=== PATIENT | male | born 1980 | race Caucasian/White ===

== ENCOUNTER 2016-10-08 06:55 | Emergency (ER) | payer BC ==
--- NOTE | 2016-10-08 09:56 | DIAGNOSTIC IMAGING REPORT ---
PROCEDURE: XR CHEST 1 VIEW INDICATION: CHEST PAIN TECHNIQUE: Single view chest. 09:13 hours COMPARISON: None FINDINGS: The heart is at the upper limits of normal in size. Normal aortic contour. No central venous congestion. Clear lungs. No effusion or pneumothorax. Intact osseous structures. IMPRESSION: 1. Upper limits of normal heart size. 2. No acute process.
--- NOTE | 2016-10-08 14:46 | DIAGNOSTIC IMAGING REPORT ---
PROCEDURE: XR LUMBAR SPINAL PUNCTURE INDICATION: Headache. TECHNIQUE: Informed consent was obtained and the patient was advised of the usual risk and complications including infection, bleeding, and allergy. COMPARISON: None. FINDINGS: Prone position. Following sterile preparation and 1% lidocaine local anesthetic, fluoroscopic guidance (2.9 minutes, 1671.47 mGy) was utilized to place a 20-gauge spinal needle into the right posterior spinal canal at the L2-3 level (after some difficulty). 12 ml of clear CSF was aspirated (four separate tubes). Fluid samples and the patient were transferred back to the emergency department in satisfactory condition. The patient was instructed to remain semi prone for 4-6 hours and to resume routine activity in 2 days. IMPRESSION: 1. Successful diagnostic fluoroscopically guided lumbar puncture. 2. Findings discussed with Dr. Axel Still.
--- NOTE | 2016-10-08 15:37 | ED ORDER SUMMARY ---
..... Patient: DIANE CH OrderSheet [facility] VisitID: [id number] [place] [address] 36y, M Registration Date/Time: 10/08/2016 ORDER SHEET Weight: 115.6 kg (stated) Allergies: None GENERAL ORDERS: UA-Culture if indicated Urgent (07:10/08/2016 JBoardley R.N. per protocol) (Ack 7:17 KHoerner) (7:19 JBoardley R.N.) Urine Drug Screen Urgent (07:10/08/2016 JBoardley R.N. per protocol) (Ack 7:17 KHoerner) (7:19 JBoardley R.N.) Tenter Feeder (Continuous) (07:10/08/2016 JBoardley R.N. per protocol) (7:17 JBoardley R.N.) EKG - ER Stat (07:10/08/2016 JBoardley R.N. per protocol) (7:17 JBoardley R.N.) CBC w Diff Urgent (08:11 10/08/2016 Jewel Joshua) (Ack 8:11 CHERIoerner) (9:10 ALawrence ER Tech1) CMP Urgent (08:11 10/08/2016 Jewel Joshua) (Ack 8:11 CHERIoekadyner) (9:10 ALawrence ER Tech1) Chest 1V Urgent (09:03 10/08/2016 Jewel Joshua) (Ack 9:06 CHERIoerner) (9:10 ALawrence ER Tech1) CPK Urgent (09:10/08/2016 Bobby CABRERA) (Ack 9:27 CHERIoerner) (9:45 KHoerner) Troponin-I Urgent (09:10/08/2016 Bobby CABRERA) (Ack 9:27 CHERIoealex) (9:45 KHoerner) BNP Urgent (09:10/08/2016 Bobby CABRERA) (Ack 9:27 CHERIoerner) (9:45 KHoerner) Lactate, Serum Urgent (09:10/08/2016 Bobby CABRERA) (Ack 9:27 KHoerner) (9:45 KHoerner) Blood Culture (No) (N/A) Urgent (09:23 10/08/2016 Bobby CABRERA) (Ack 9:27 KHoerner) (9:45 KHoerner) EKG - ER Stat (09:58 10/08/2016 Bobby CABRERA) (10:04 ALawrence ER Tech1) CSF, Cell Count Urgent (12:20 10/08/2016 Bobby CABRERA) (Ack 12:24 KHoerner) (14:20 KHoerner) CSF, Culture Urgent (12:20 10/08/2016 Bobby CABRERA) (Ack 12:24 KHoerner) (14:20 KHoerner) CSF, Glucose Urgent (12:20 10/08/2016 Bobby CABRERA) (Ack 12:24 KHoerner) (14:20 KHoerner) CSF, Protein Urgent (12:20 10/08/2016 Bobby CABRERA) (Ack 12:24 KHoerner) (14:20 KHoerner) - (fluoroscopy guided lumbar puncture) (13:19 10/08/2016 Bobby CABRERA) (13:24 KHoerner) MEDICATION ORDERS: Ibuprofen PO 800 mg (NOW) (09:49 10/08/2016 SStone R.N. verbal order read back to Bobby CABRERA) (9:51 SStone R.N.) IV FLUIDS: Adenosine IV 6 mg (HIGH ALERT MEDICATION, NOW) (07:52 10/08/2016 SStone R.N. verbal order read back to Jewel Joshua) (7:55 SStone R.N.) Adenosine IV 12 mg (HIGH ALERT MEDICATION, NOW) (07:53 10/08/2016 SStone R.N. verbal order read back to Jewel Joshua) (7:55 SStone R.N.) Lopressor IV 5 mg (NOW) (07:53 10/08/2016 SStone R.N. verbal order read back to Jewel Joshua) (7:56 SStone R.N.) IV NS with Normal Saline 1 Liter: initial bolus 1000 mL (1000 mL/hr), then 1000 mL/hr for X1 (NOW) (07:54 10/08/2016 SStone R.N. verbal order read back to Jewel Joshua) (7:56 SStone R.N.) IV Saline Lock (07:54 10/08/2016 SStone R.N. verbal order read back to Jewel Joshua) (Ack 7:54 SStone R.N.) Lopressor IV 5 mg (HIGH ALERT MEDICATION, NOW) (08:08 10/08/2016 Jewel Joshua) (8:22 SStone R.N.) IV NS : initial bolus none -, then 1000 mL/hr for X1 (NOW) (08:09 10/08/2016 Jewel Joshua) (8:24 SStone R.N.) Reglan IV 10 mg (NOW) (08:14 10/08/2016 Jewel Joshua) (8:23 SStone R.N.) IV NS with Normal Saline 1 Liter: initial bolus none -, then 125 mL/hr for X1 (NOW) (09:50 10/08/2016 SStone R.N. verbal order read back to Bobby CABRERA) (9:51 SStone R.N.) Zofran IV 4 mg (NOW) (12:18 10/08/2016 Yuliana verbal order read back to Jewel Joshua) (12:26 SStone R.N.) Ativan IV 0.5 mg (HIGH ALERT MEDICATION, NOW) (13:24 10/08/2016 Bobby CABREAR) (Ack 13:30 KPage-Kuchan R.N.) (13:40 KPavishalKuchan R.N.) ORDER SHEET NOTES: [Electronically signed by Taylor Leonard R.N. (15:57 10/08/2016)] [Electronically signed by Axel Still MD (22:44 10/09/2016)] [Electronically locked/signed by Taylor Leonard R.N. (15:57 10/08/2016)]
--- NOTE | 2016-10-08 15:37 | ED ORDER SUMMARY ---
..... Patient: DIANE CH OrderSheet [facility] VisitID: [id number] [place] [address] 36y, M Registration Date/Time: 10/08/2016 ORDER SHEET Weight: 115.6 kg (stated) Allergies: None GENERAL ORDERS: UA-Culture if indicated Urgent (07:10/08/2016 JBoardley R.N. per protocol) (Ack 7:17 KHoerner) (7:19 JBoardley R.N.) Urine Drug Screen Urgent (07:10/08/2016 JBoardley R.N. per protocol) (Ack 7:17 KHoerner) (7:19 JBoardley R.N.) Medical Collections Representative (Continuous) (07:10/08/2016 JBoardley R.N. per protocol) (7:17 JBoardley R.N.) EKG - ER Stat (07:10/08/2016 JBoardley R.N. per protocol) (7:17 JBoardley R.N.) CBC w Diff Urgent (08:11 10/08/2016 Jewel Joshua) (Ack 8:11 CHERIoerner) (9:10 ALawrence ER Tech1) CMP Urgent (08:11 10/08/2016 Jewel Joshua) (Ack 8:11 CHERIoekadyner) (9:10 ALawrence ER Tech1) Chest 1V Urgent (09:03 10/08/2016 Jewel Joshua) (Ack 9:06 CHERIoerner) (9:10 ALawrence ER Tech1) CPK Urgent (09:10/08/2016 Bobby CABRERA) (Ack 9:27 CHERIoerner) (9:45 KHoerner) Troponin-I Urgent (09:10/08/2016 Bobby CABRERA) (Ack 9:27 CHERIoealex) (9:45 KHoerner) BNP Urgent (09:10/08/2016 Bobby CABRERA) (Ack 9:27 CHERIoerner) (9:45 KHoerner) Lactate, Serum Urgent (09:10/08/2016 Bobby CABRERA) (Ack 9:27 KHoerner) (9:45 KHoerner) Blood Culture (No) (N/A) Urgent (09:23 10/08/2016 Bobby CABRERA) (Ack 9:27 KHoerner) (9:45 KHoerner) EKG - ER Stat (09:58 10/08/2016 Bobby CABRERA) (10:04 ALawrence ER Tech1) CSF, Cell Count Urgent (12:20 10/08/2016 Bobby CABRERA) (Ack 12:24 KHoerner) (14:20 KHoerner) CSF, Culture Urgent (12:20 10/08/2016 Bobby CABRERA) (Ack 12:24 KHoerner) (14:20 KHoerner) CSF, Glucose Urgent (12:20 10/08/2016 Bobby CABRERA) (Ack 12:24 KHoerner) (14:20 KHoerner) CSF, Protein Urgent (12:20 10/08/2016 Bobby CABRERA) (Ack 12:24 KHoerner) (14:20 KHoerner) - (fluoroscopy guided lumbar puncture) (13:19 10/08/2016 Bobby CABRERA) (13:24 KHoerner) MEDICATION ORDERS: Ibuprofen PO 800 mg (NOW) (09:49 10/08/2016 SStone R.N. verbal order read back to Bobby CABRERA) (9:51 SStone R.N.) IV FLUIDS: Adenosine IV 6 mg (HIGH ALERT MEDICATION, NOW) (07:52 10/08/2016 SStone R.N. verbal order read back to Jewel Joshua) (7:55 SStone R.N.) Adenosine IV 12 mg (HIGH ALERT MEDICATION, NOW) (07:53 10/08/2016 SStone R.N. verbal order read back to Jewel Joshua) (7:55 SStone R.N.) Lopressor IV 5 mg (NOW) (07:53 10/08/2016 SStone R.N. verbal order read back to Jewel Joshua) (7:56 SStone R.N.) IV NS with Normal Saline 1 Liter: initial bolus 1000 mL (1000 mL/hr), then 1000 mL/hr for X1 (NOW) (07:54 10/08/2016 SStone R.N. verbal order read back to Jewel Joshua) (7:56 SStone R.N.) IV Saline Lock (07:54 10/08/2016 SStone R.N. verbal order read back to Jewel Joshua) (Ack 7:54 SStone R.N.) Lopressor IV 5 mg (HIGH ALERT MEDICATION, NOW) (08:08 10/08/2016 Jewel Joshua) (8:22 SStone R.N.) IV NS : initial bolus none -, then 1000 mL/hr for X1 (NOW) (08:09 10/08/2016 Jewel Joshua) (8:24 SStone R.N.) Reglan IV 10 mg (NOW) (08:14 10/08/2016 Jewel Joshua) (8:23 SStone R.N.) IV NS with Normal Saline 1 Liter: initial bolus none -, then 125 mL/hr for X1 (NOW) (09:50 10/08/2016 SStone R.N. verbal order read back to Bobby CABRERA) (9:51 SStone R.N.) Zofran IV 4 mg (NOW) (12:18 10/08/2016 Yuliana verbal order read back to Jewel Joshua) (12:26 SStone R.N.) Ativan IV 0.5 mg (HIGH ALERT MEDICATION, NOW) (13:24 10/08/2016 Bobby CABRERA) (Ack 13:30 KPage-Kuchan R.N.) (13:40 KPavishalKuchan R.N.) ORDER SHEET NOTES: [Electronically signed by Taylor Leonard R.N. (15:57 10/08/2016)] [Electronically signed by Axel Still MD (22:44 10/09/2016)] [Electronically locked/signed by Taylor Leonard R.N. (15:57 10/08/2016)]
--- NOTE | 2016-10-08 15:37 | ED CLINICAL REPORT ---
Clinical Report - Physicians/Mid Levels [facility] [address] [place] [address] 10/08/2016 7:00 Patient: DIANE CH Time Seen: 07:09; initial patient contact. Arrived- By ambulance. Historian- patient and EMS personnel. HISTORY OF PRESENT ILLNESS Chief Complaint: HEADACHE. This started today. It was abrupt in onset. Onset during light activity. It is described as similar to previous headaches. Located in the region of the right eye and left eye and frontal region. No neck pain. At its maximum, severity described as 8 / 10. When seen in the E.D., severity described as 3 / 10. No preceding symptoms, blurred vision, photophobia, associated nausea or numbness. No weakness or vomiting. (initially he felt that he had a caffeine withdrawal headache so he drank 2 energy drinks. Then he started feeling worse. He became flushed and had a "pinching" pain in his L armpit). No recent travel. REVIEW OF SYSTEMS The patient has had chills and experienced sweats. All systems otherwise negative, except as recorded above. PAST HISTORY Problems: no known problems. Additional Surgeries: no known surgeries. Medications: None. Allergies: None. SOCIAL HISTORY Smoker- current status unknown (he uses an e cigarette). History of occasional drug use: marijuana. No alcohol use. FAMILY HISTORY Cancer in first-degree relative (mother) and grandparent. ADDITIONAL NOTES The nursing notes have been reviewed. PHYSICAL EXAM Vital Signs: 10/08/2016 07:12 BP: 141/74. HR: 156. RR: 22. O2 saturation: 100%. Temp: 99.1 F. Pain level now: 7/10. Have been reviewed. Appearance: Alert. He is moderately obese. Eyes: Pupils equal, round and reactive to light. Eyes normal inspection. ENT: Pharynx normal. Neck: Normal inspection. Neck supple. No carotid bruit. CVS: Tachycardia. Respiratory: No respiratory distress. Breath sounds normal. Abdomen: Soft and nontender. No organomegaly. Obese. Back: Normal inspection. Skin: Diaphoresis. Extremities: Extremities exhibit normal ROM. No calf tenderness. No lower extremity edema. Neuro: Alert. Mood/affect normal. Speech normal. Cranial nerves normal (as tested). No cerebellar findings. No motor deficit. No sensory deficit. LABS, X-RAYS, AND EKG EKG: Rate: 149. Tachycardia. Prior EKG unavailable. The study has been independently viewed by me. EKG #2: Rate: 101. The study has been independently viewed by me. Chest X-ray: (IMPRESSION: 1. Upper limits of normal heart size. 2. No acute process.). The X-rays were interpreted by the radiologist and contemporaneously by me. Laboratory Tests: UA-Culture if indicated: (TREVON: 10/08/2016 07:04) ( [facility] 10/08/2016 07:49) Final results Test Result Flag Units (Reference) URINE COLOR YELLOW URINE APPEARANCE CLEAR URINE GLUCOSE NEGATIVE (NEGATIVE) URINE BILIRUBIN NEGATIVE (NEGATIVE) URINE KETONE NEGATIVE (NEGATIVE) URINE SPECIFIC GRAVITY 1.025 (1.010-1.030) URINE PH 5.5 (5.0-8.0) URINE PROTEIN NEGATIVE (NEGATIVE) URINE UROBILINOGEN 0.2 EU/dL (0.2-1.0) URINE NITRITE NEGATIVE (NEGATIVE) URINE BLOOD 1+ (NEGATIVE) URINE LEUK ESTERASE NEGATIVE (NEGATIVE) URINE RBC 3-5 rbc/hpf (0-1) URINE WBC RARE wbc/hpf (0-1) URINE EPITHELIAL CELLS RARE EPI/hpf (0-5) URINE BACTERIA NONE SEEN (NONE SEEN) URINE COMMENT CULT NOT INDICATED URINE CULTURES ARE SET-UP BASED ON THE FOLLOWING CRITERIA:POSITIVE NITRITEPOSITIVE LEUKOCYTE ESTERASEGREATER THAN 10 WHITE BLOOD CELLSMODERATE (2+) OR GREATER BACTERIA CBC w Diff: (TREVON: 10/08/2016 08:40) ( [facility] 10/08/2016 08:56) Final results Test Result Flag Units (Reference) WHITE BLOOD COUNT 16.4 H K/uL (4.5-11.5) RED BLOOD COUNT 4.61 M/uL (4.50-5.90) HEMOGLOBIN 12.9 L gm/dL (13.5-17.5) HEMATOCRIT 38.5 L % (41.0-53.0) MEAN CELL VOLUME 84 fL (80-100) MEAN CORPUSCULAR HGB 28 pg (26-34) MEAN CORPUSCULAR HGB CONC 34 g/dL (31-37) RED CELL DISTRIBUTION WIDTH 12.6 % (11.6-14.8) PLATELET COUNT 295 K/uL (150-400) NEUTROPHIL % 93.1 H % (50-75) LYMPH % 3.5 L % (25-40) MONO % 3.2 % (3-14) EOSINOPHIL % 0.2 % (0-4) BASOPHIL % 0 % (0-2) BNP: (TREVON: 10/08/2016 07:20) ( [facility] 10/08/2016 09:51) Final results Test Result Flag Units (Reference) B-TYPE NATRIURETIC PEPTIDE 7.3 pg/ml (5-100) Lactate, Serum: (TREVON: 10/08/2016 09:39) ( [facility] 10/08/2016 10:19) Final results Test Result Flag Units (Reference) LACTIC ACID 1.2 mmol/L (0.4-2.0) CPK: (TREVON: 10/08/2016 08:40) ( [facility] 10/08/2016 09:52) Final results Test Result Flag Units (Reference) CPK 203 U/L (24-260) TROPONIN I <0.05 ng/mL (0.00-1.5) TROPONIN REFERENCE RANGE:<0.1 NEGATIVE0.1-1.5 INDETERMINANT>1.5 POSITIVE CMP: (TREVON: 10/08/2016 08:40) ( [facility] 10/08/2016 09:04) Final results Test Result Flag Units (Reference) GLUCOSE 126 H mg/dL (70-110) BUN 18 mg/dL (7-18) CREATININE 1.0 mg/dL (0.6-1.3) Estimated GFR >60 mL/min Estimated GFR- >60 mL/min Note: Persistent reduction over 3 months in eGFR<60 mL/min/1.73 m2 defines CKD. Patients with eGFR values>=60 mL/min/1.73 m2 may also have CKD if evidence ofpersistent proteinuria. Additional information may be foundat www.kidney.org. SODIUM 139 mmol/L (136-145) POTASSIUM 3.9 mmol/L (3.5-5.1) CHLORIDE 107 mmol/L (98-107) CARBON DIOXIDE 22 mmol/L (21-32) CALCIUM 8.3 L mg/dL (8.5-10.1) TOTAL PROTEIN 7.3 g/dL (6.4-8.2) ALBUMIN 3.5 g/dL (3.3-5.0) BILIRUBIN, TOTAL 0.4 mg/dL (0.0-1.0) ALKALINE PHOSPHATASE 99 U/L (46-116) AST (SGOT) 47 H U/L (15-37) ALT (SGPT) 102 H U/L (12-78) Urine Drug Screen: (TREVON: 10/08/2016 07:04) ( [facility] 10/08/2016 07:44) Final results Test Result Flag Units (Reference) AMPHETAMINE/METHAMPHETAMINE NEGATIVE (NEGATIVE) BARBITURATE NEGATIVE (NEGATIVE) BENZODIAZEPINE NEGATIVE (NEGATIVE) CANNABINOID NEGATIVE (NEGATIVE) COCAINE NEGATIVE (NEGATIVE) ECSTASY NEGATIVE (NEGATIVE) METHADONE NEGATIVE (NEGATIVE) OPIATE NEGATIVE (NEGATIVE) The urine drug screen is a qualitative screening test fordrug overdose and abuse. All screen results should beconsidered as presumptive.Drugs screened for are as follows:BenzodiazepinesCocaineAmphetamines/MetamphetaminesTHC (Tetrahydrocannabinol)OpiatesBarbituratesEcstasyMethadonePositive results are unconfirmed. For confirmation, notifythe lab for the specimen to be sent to the reference lab.All confirmations must be performed by a differentmethodology.The ingestion of natural herbal and plant productscontaining Ephedra/Ephedra metabolites can produce in urineone or more substances capable of cross reacting withamphetamine/methamphetamine immunoassays. These testsprovide a preliminary result only. A more specificalternative chemical method must be used to obtain aconfirmed analytical result. CSF, Cell Count: (TREVON: 10/08/2016 12:20) ( [facility] 10/08/2016 15:25) Final results Test Result Flag Units (Reference) CSF TOTAL VOLUME 12.0 CC TUBE # 3 COLOR COLORLESS APPEARANCE CLEAR CSF WBC 1 WBC/mm3 (0-5) CSF RBC 3 RBC/mm3 (0-5) CSF GLUCOSE 63 mg/dL (40-75) CSF PROTEIN 34.3 mg/dL (15-45) CSF, Culture: (TREVON: 10/08/2016 14:15) ( [facility] 10/08/2016 15:26) IP Test Result Flag Units (Reference) GRAM STAIN, CSF DATE: 10/08/16 EPITHELIAL CELLS: NONE NO CELLS/NO BACTERIA: NO CELLS OR BACTERIA SEEN NO ORGANISMS SEEN: NO ORGANISMS SEEN WHITE BLOOD CELLS: NONE -- SPINAL FLUID . PROGRESS AND PROCEDURES Lumbar Puncture: Time-out completed immediately before the procedure. Lumbar puncture performed by me. Risks, benefits and alternatives were discussed. Consent was obtained from patient. Sterile technique was used. Local lidocaine anesthesia was used. A 22g needle was used. (3 unsuccessful attempts were made by me with a 5 inch needle. I subsequently consulted the nurse pit crew support worker and she also made multiple attempts that were not successful. Therefore, interventional radiology was consulted and they obtained a sample under fluoroscopy.). Course of Care: the patient's care had been initiated by Dr. Enriquez. He reports that the patient arrived tachycardic. He treated the patient with adenosine, 2 doses without improvement. He subsequently treated him with a beta arleen and his heart rate improved however he still remains mildly tachycardic. - MW. Symptoms better. Vital signs have been reviewed. Physical exam findings are improved. Alert. No acute distress. Breath sounds normal. No respiratory distress. Normal heart rate and rhythm. Heart sounds normal. Abdomen soft and nontender. Skin warm and dry. Patient/family counseled. Old medical records ordered. Disposition: Discharged. Condition: stable. CLINICAL IMPRESSION Acute headache. Sinus tachycardia (Likely related to energy drink use). Leukocytosis. INSTRUCTIONS No driving or operating machinery while taking medication. Sedative medication was given during your visit. Do not work today, tomorrow. Warnings: Further evaluation is necessary. GENERAL WARNINGS: Return or contact your physician immediately if your condition worsens or changes unexpectedly, if not improving as expected, or if other problems arise. Understanding of the discharge instructions verbalized by patient and family. Follow-up with: [facility], , , [address], , [place], [id number] Follow up tomorrow. Call for an appointment. (Electronically signed by Axel Still MD 10/09/2016 22:44)
--- NOTE | 2016-10-08 15:37 | ED NURSING NOTES ---
Clinical Report - Nurses [facility] [address] [place] [address] 10/08/2016 7:00 Patient: DIANE CH TRIAGE Triage time 07:Oct 08 2016. Acuity: LEVEL 4. Chief Complaint: MIGRAINE HEADACHE. 07:12 10/08/16. 07:10/08/16. Alert. No acute distress. LINDA COMA SCORE: [place] Coma Scale: 15- eyes open spontaneously (4); best verbal response- oriented x 4 (5); best motor response- obeys commands (6). --07:15 Martín Mullen R.N. 07:11 10/08/16. BP: 141/74. HR: 156. RR: 22. O2 saturation: 100% on room air. Temp: 99.1 F. Pain level now: 11/24. --07:15 Martín Mullen R.N. Weight: 115.6 kg stated. Height/Length: 74 inches Per Patient. BMI: 32.7. --07:12 Martín Mullen R.N. Medications None. --07:15 Martín Mullen R.N. Medication/allergy information source: the patient. --07:15 Martín Mullen R.N. Allergies None. --07:15 Martín Mullen R.N. History Arrived by private vehicle. Historian: patient. Accompanied by family. Primary physician (NONE). 07:12 10/08/16. This started just prior to arrival. Treatment DIVIDEND DEPOSIT VOUCHER CLERK: None. PAST MEDICAL HX: Immunizations: status is unknown. SOCIAL HX: Smoker- current status unknown (e-cigarette). History of occasional drug use: marijuana. No alcohol use. No recent travel. No infectious disease exposure. No known contact with a sick individual. ABUSE ASSESSMENT: No report of abuse. FALL RISK ASSESSMENT: Fall risk assessment completed. No fall risk identified. NUTRITIONAL RISK ASSESSMENT: The nutritional risk assessment revealed no deficiencies. FUNCTIONAL ASSESSMENT: Functional assessment: no impairments noted. LEARNING NEEDS ASSESSMENT: The learning needs assessment revealed no barriers. SKIN INTEGRITY ASSESSMENT: Skin integrity risk assessment completed. No skin integrity risk identified. --07:15 Martín Mullen R.N. PROBLEMS: no known problems. ADDITIONAL SURGERIES: no known surgeries. Assessment 07:12 10/08/16. --07:15 Martín Mullen R.N. Interventions 07:12 10/08/16. 07:12 10/08/16. ID and allergy band on patient. To treatment room. --07:15 Martín Mullen R.N. PHYSICAL ASSESSMENT 07:15 10/08/16. Ambulatory to room. GENERAL / NEURO / PSYCH: Oriented X 4. Appears in pain. Speech within normal limits. RESPIRATORY: Respirations not labored. CVS: Cardiac rhythm: sinus tachycardia. Capillary refill less than 2 seconds. SKIN: Skin is warm and dry. --07:15 Martín Mullen R.N. NURSING PROGRESS NOTES 07:16 10/08/16. The plan of care for this patient has been created. Patient gowned. Head of bed elevated. Reassurance given. Lights dimmed. Two patient identifiers checked. Call light placed in reach. Side rails up x 2. Bed placed in lowest position. Brakes of bed on. --07:16 Martín Mullen R.N. 07:16 10/08/16. Patient ready for evaluation- chart flagged and notification provided. --07:16 Martín Mullen R.N. ( Pt moved to room 2). --07:32 Taylor Leonard R.N. ( defib pads placed on patient as a precautionary measure pre adenosine cardioversion). --07:32 Taylor Leonard R.N. ( 0733: adenosine 6mg for HR 140s- No change. 0737: Adenosine 12 mg for HR 140s- No change. 0743: Lopressor 5 mg SIVP with BP 151/71 and HR 136.). --07:47 Taylor Leonard R.N. 07:47 10/08/16. BP: 141/86. HR: 116. RR: 30. O2 saturation: 99%. Pain level now: 11/24. --07:49 Taylor Leonard R.N. 07:24 10/08/2016 Site #1 started via IV in the right antecubital space with an 18g angiocath; one attempt. Blood drawn: rainbow set. Saline lock flushed with 10 mL saline. --07:49 Taylor Leonard R.N. 07:25 10/08/16. ( Pt states he drank two energy drinks before he came to the ER, pt is tachycardic). --07:25 Martín Mullen R.N. 07:51 10/08/16. HR: 122. --07:51 Taylor Leonard R.N. 07:30 10/08/2016 Started bag #1 1000 mL IV Fluids IV NS (Saline); bolus of 1000 mL wide open then at 750 mL/hr over 1 hour(s) via site #1. IV patency established. IV site checked: no pain, redness, or swelling. IV flushed thoroughly pre- and post-medication administration. --07:56 Taylor Leonard R.N. 07:33 10/08/2016 Adenosine IVP 6 mg given over 1 second(s) via site #1. IV patency established. IVP given by RN. --07:55 Taylor Leonard R.N. 07:37 10/08/2016 Adenosine IVP 12 mg given over 1 second(s) via site #1. IV patency established. IV site checked: no pain, redness, or swelling. IV flushed thoroughly pre- and post-medication administration. --07:55 aTylor Leonard R.N. 07:43 10/08/2016 Lopressor (Metoprolol Tartrate) IVP 5 mg given over 2 minute(s) via site #1. IV patency established. IV site checked: no pain, redness, or swelling. IV flushed thoroughly pre- and post-medication administration. IVP given by RN. --07:56 Taylor Leonard R.N. 07:57 10/08/16. BP: 138/71. HR: 114. RR: 28. O2 saturation: 95%. --07:58 Taylor Leonard R.N. ( Pt. states he is starting to feel better.). --07:58 Taylor Leonard R.N. 08:15 10/08/16. BP: 125/77. HR: 113. --08:21 Taylor Leonard R.N. 08:10 10/08/16. BP: 136/67. HR: 119. --08:22 Taylor Leonard R.N. --08:22 Taylor Leonard R.N. 08:09 10/08/2016 IV Fluids IV NS Bag Change: bag #1 completed. Total amount infused: 1000. STARTED bag #2 (1000 mL) at 1000 mL/hr. --08:24 Taylor Leonard R.N. 08:10 10/08/2016 Lopressor (Metoprolol Tartrate) IVP 5 mg given over 2 minute(s) via site #1. --08:22 Taylor Leonard R.N. 08:15 10/08/2016 Reglan (Metoclopramide HCl) IVP 10 mg given over 30 minute(s) via site #1. Allergies verified and confirmed 5 rights. IV patency established. IV site checked: no pain, redness, or swelling. IV flushed thoroughly pre- and post-medication administration. IVP given by RN (placed in 1000 ml NS). --08:23 Taylor Leonard R.N. 08:24 10/08/2016 Started IV Fluids IV NS (Saline); bolus of 1000 mL wide open via site #1 --08:24 Taylor Leonard R.N. ( girlfriend at bedside. pt. resting quietly. states he is feeling better.). --08:24 Taylor Leonard R.N. 08:50 10/08/16. BP: 122/61. HR: 102. RR: 21. --08:50 Taylor Leonard R.N. ( ice chips provided. Ok'd by ). --08:52 Taylor Leonard R.N. 09:42 10/08/16. BP: 109/86. HR: 97. --09:47 Taylor Leonard R.N. late entry - 0845 Pt. voided 400 ml clear yellow urine. --09:47 Taylor Leonard R.N. 09:51 10/08/2016 Started bag #1 1000 mL IV Fluids IV NS (Saline); at 125 mL/hr over 7 hour(s) via site #1 --09:51 Taylor Leonard R.N. 09:51 10/08/2016 Ibuprofen PO Tablets 800 mg given. Allergies verified and confirmed 5 rights. --09:51 Taylor Leonard R.N. 09:51 10/08/2016 IV Fluids IV NS Discontinued: bag #2 infused. Total amount infused: 1000 mL. IV patency established. IV site checked: no pain, redness, or swelling. IV flushed thoroughly. --09:51 Taylor Leonard R.N. 10:04 10/08/16. BP: 115/71. HR: 97. --10:05 Taylor Leonard R.N. EKG time: (1003). EKG was performed by a tech and shown to the ED physician. --10:08 Lizzeth Apodaca ER Tech1 ( In position for LP. RN at bedside assisting). --10:55 Taylor Leonard R.N. 10:55 10/08/16. BP: 113/64. HR: 109. --10:55 Taylor Leonard R.N. late entry - 07:25 EKG accomplished and shown to ED physician. --11:25 Taylor Leonard R.N. 12:16 10/08/2016 Zofran (Ondansetron HCl) IVP 4 mg given over 2 minute(s) via site #1. Allergies verified and confirmed 5 rights. IV patency established. IV site checked: no pain, redness, or swelling. IV flushed thoroughly pre- and post-medication administration. IVP given by RN. --12:26 Taylor Leonard R.N. 12:26 10/08/16. BP: 109/49. HR: 78. RR: 16. O2 saturation: 100% at 2 liters/minute. Temp: 99.1 F. --12:29 Taylor Leonard R.N. ( RN at bedside 1:1 nursing with LOCKSTITCHER from 1135 until 1230 for attempt at LP. Pt. became diaphoretic, lightheaded and nauseated during the procedure while sitting up. Pt. was placed on his right side, placed O2 at 2L per LOCKSTITCHER request. Order for Zofran was given 4 mg IV. Pt. tolerated procedure well, but ultimately declined further attempts at LP.). --12:29 Taylor Leonard R.N. 13:00 10/08/16. BP: 101/56. HR: 71. O2 saturation: 100%. --13:01 Taylor Leonard R.N. ( Patient resting quietly. Girlfriend at bedside. Awaiting dispo). --13:01 Taylor Leonard R.N. ( MD at bedside explaining plans for IR to do LP). --13:22 Prabhu Eduardo R.N. 13:18 10/08/16. BP: 100/62. HR: 80. O2 saturation: 100%. --13:22 Prabhu Eduardo R.N. 13:33 10/08/2016 Ativan (LORazepam) IVP 0.5 mg given. via site #1. Allergies verified, confirmed 5 rights and sedative warning given to the patient and patient's montessori lead teacher. IV patency established. IV site checked: no pain, redness, or swelling. IV flushed thoroughly pre- and post-medication administration. IVP given by RN. --13:40 Prabhu Eduardo R.N. ( Pt out to IR). --13:54 Taylor Leonard R.N. 1430 late entry - Patient back from IR. Tolerated procedure well. Supine. Reconnected to monitor. No needs at this time. 14:50. --14:50 Taylor Leonard R.N. 14:50 10/08/16. BP: 105/64. HR: 74. Temp: 95 F. --14:50 Taylor Leonard R.N. ( Pt. OK'd to eat by .). --15:21 Taylor Leonard R.N. 10:57 10/08/2016 IV Fluids IV NS Discontinued: bag #2 infused. Total amount infused: 1000 mL. --15:57 Taylor Leonard R.N. DISPOSITION / DISCHARGE 15:54 10/08/2016 Site #1 removed upon discharge. Bandage applied. --15:54 Taylor Leonard R.N. Departure time: 1555. Condition at departure: improved and stable. No learning barriers present. Discharge instructions provided and reviewed with the patient and family. Reviewed warnings. Reviewed medication(s) side effects information. Patient verbalized understanding. Written instructions provided in Cameroonian. The patient was discharged by the physician. He was discharged home and accompanied by spouse. He left the Emergency Department ambulatory and via private vehicle. Spouse driving. --15:55 Taylor Leonard R.N. 15:54 10/08/16. BP: 97/51. HR: 78. RR: 16. O2 saturation: 100%. Temp: 98 F. Pain level now: 0/10. --15:55 Taylor Leonard R.N. Locked/Released at 10/08/2016 15:57 by Taylor Leonard R.N.
--- NOTE | 2016-10-08 15:37 | ED NURSING NOTES ---
Clinical Report - Nurses [facility] [address] [place] [address] 10/08/2016 7:00 Patient: DIANE CH TRIAGE Triage time 07:Oct 08 2016. Acuity: LEVEL 4. Chief Complaint: MIGRAINE HEADACHE. 07:12 10/08/16. 07:10/08/16. Alert. No acute distress. LINDA COMA SCORE: [place] Coma Scale: 15- eyes open spontaneously (4); best verbal response- oriented x 4 (5); best motor response- obeys commands (6). --07:15 Martín Mullen R.N. 07:11 10/08/16. BP: 141/74. HR: 156. RR: 22. O2 saturation: 100% on room air. Temp: 99.1 F. Pain level now: 11/24. --07:15 Martín Mullen R.N. Weight: 115.6 kg stated. Height/Length: 74 inches Per Patient. BMI: 32.7. --07:12 Martín Mullen R.N. Medications None. --07:15 Martín Mullen R.N. Medication/allergy information source: the patient. --07:15 Martín Mullen R.N. Allergies None. --07:15 Martín Mullen R.N. History Arrived by private vehicle. Historian: patient. Accompanied by family. Primary physician (NONE). 07:12 10/08/16. This started just prior to arrival. Treatment FLASK PUSHER: None. PAST MEDICAL HX: Immunizations: status is unknown. SOCIAL HX: Smoker- current status unknown (e-cigarette). History of occasional drug use: marijuana. No alcohol use. No recent travel. No infectious disease exposure. No known contact with a sick individual. ABUSE ASSESSMENT: No report of abuse. FALL RISK ASSESSMENT: Fall risk assessment completed. No fall risk identified. NUTRITIONAL RISK ASSESSMENT: The nutritional risk assessment revealed no deficiencies. FUNCTIONAL ASSESSMENT: Functional assessment: no impairments noted. LEARNING NEEDS ASSESSMENT: The learning needs assessment revealed no barriers. SKIN INTEGRITY ASSESSMENT: Skin integrity risk assessment completed. No skin integrity risk identified. --07:15 Martín Mullen R.N. PROBLEMS: no known problems. ADDITIONAL SURGERIES: no known surgeries. Assessment 07:12 10/08/16. --07:15 Martín Mullen R.N. Interventions 07:12 10/08/16. 07:12 10/08/16. ID and allergy band on patient. To treatment room. --07:15 Martín Mullen R.N. PHYSICAL ASSESSMENT 07:15 10/08/16. Ambulatory to room. GENERAL / NEURO / PSYCH: Oriented X 4. Appears in pain. Speech within normal limits. RESPIRATORY: Respirations not labored. CVS: Cardiac rhythm: sinus tachycardia. Capillary refill less than 2 seconds. SKIN: Skin is warm and dry. --07:15 Martín Mullen R.N. NURSING PROGRESS NOTES 07:16 10/08/16. The plan of care for this patient has been created. Patient gowned. Head of bed elevated. Reassurance given. Lights dimmed. Two patient identifiers checked. Call light placed in reach. Side rails up x 2. Bed placed in lowest position. Brakes of bed on. --07:16 Martín Mullen R.N. 07:16 10/08/16. Patient ready for evaluation- chart flagged and notification provided. --07:16 Martín Mullen R.N. ( Pt moved to room 2). --07:32 Taylor Leonard R.N. ( defib pads placed on patient as a precautionary measure pre adenosine cardioversion). --07:32 Taylor Leonard R.N. ( 0733: adenosine 6mg for HR 140s- No change. 0737: Adenosine 12 mg for HR 140s- No change. 0743: Lopressor 5 mg SIVP with BP 151/71 and HR 136.). --07:47 Taylor Leonard R.N. 07:47 10/08/16. BP: 141/86. HR: 116. RR: 30. O2 saturation: 99%. Pain level now: 11/24. --07:49 Taylor Leonrad R.N. 07:24 10/08/2016 Site #1 started via IV in the right antecubital space with an 18g angiocath; one attempt. Blood drawn: rainbow set. Saline lock flushed with 10 mL saline. --07:49 Taylor Leonard R.N. 07:25 10/08/16. ( Pt states he drank two energy drinks before he came to the ER, pt is tachycardic). --07:25 Martín Mullen R.N. 07:51 10/08/16. HR: 122. --07:51 Taylor Leonard R.N. 07:30 10/08/2016 Started bag #1 1000 mL IV Fluids IV NS (Saline); bolus of 1000 mL wide open then at 750 mL/hr over 1 hour(s) via site #1. IV patency established. IV site checked: no pain, redness, or swelling. IV flushed thoroughly pre- and post-medication administration. --07:56 Taylor Leonard R.N. 07:33 10/08/2016 Adenosine IVP 6 mg given over 1 second(s) via site #1. IV patency established. IVP given by RN. --07:55 Taylor Leonard R.N. 07:37 10/08/2016 Adenosine IVP 12 mg given over 1 second(s) via site #1. IV patency established. IV site checked: no pain, redness, or swelling. IV flushed thoroughly pre- and post-medication administration. --07:55 Taylor Leonard R.N. 07:43 10/08/2016 Lopressor (Metoprolol Tartrate) IVP 5 mg given over 2 minute(s) via site #1. IV patency established. IV site checked: no pain, redness, or swelling. IV flushed thoroughly pre- and post-medication administration. IVP given by RN. --07:56 Taylor Leonard R.N. 07:57 10/08/16. BP: 138/71. HR: 114. RR: 28. O2 saturation: 95%. --07:58 Taylor Leonard R.N. ( Pt. states he is starting to feel better.). --07:58 Taylor Leonard R.N. 08:15 10/08/16. BP: 125/77. HR: 113. --08:21 Taylor Leonard R.N. 08:10 10/08/16. BP: 136/67. HR: 119. --08:22 Taylor Leonard R.N. --08:22 Taylor Leonard R.N. 08:09 10/08/2016 IV Fluids IV NS Bag Change: bag #1 completed. Total amount infused: 1000. STARTED bag #2 (1000 mL) at 1000 mL/hr. --08:24 Taylor Leonard R.N. 08:10 10/08/2016 Lopressor (Metoprolol Tartrate) IVP 5 mg given over 2 minute(s) via site #1. --08:22 Taylor Leonard R.N. 08:15 10/08/2016 Reglan (Metoclopramide HCl) IVP 10 mg given over 30 minute(s) via site #1. Allergies verified and confirmed 5 rights. IV patency established. IV site checked: no pain, redness, or swelling. IV flushed thoroughly pre- and post-medication administration. IVP given by RN (placed in 1000 ml NS). --08:23 Taylor Leonard R.N. 08:24 10/08/2016 Started IV Fluids IV NS (Saline); bolus of 1000 mL wide open via site #1 --08:24 Taylor Leonard R.N. ( girlfriend at bedside. pt. resting quietly. states he is feeling better.). --08:24 Taylor Leonard R.N. 08:50 10/08/16. BP: 122/61. HR: 102. RR: 21. --08:50 Taylor Leonard R.N. ( ice chips provided. Ok'd by ). --08:52 Taylor Leonard R.N. 09:42 10/08/16. BP: 109/86. HR: 97. --09:47 Taylor Leonard R.N. late entry - 0845 Pt. voided 400 ml clear yellow urine. --09:47 Taylor Leonard R.N. 09:51 10/08/2016 Started bag #1 1000 mL IV Fluids IV NS (Saline); at 125 mL/hr over 7 hour(s) via site #1 --09:51 Taylor Leonard R.N. 09:51 10/08/2016 Ibuprofen PO Tablets 800 mg given. Allergies verified and confirmed 5 rights. --09:51 Taylor Leonard R.N. 09:51 10/08/2016 IV Fluids IV NS Discontinued: bag #2 infused. Total amount infused: 1000 mL. IV patency established. IV site checked: no pain, redness, or swelling. IV flushed thoroughly. --09:51 Taylor Leonard R.N. 10:04 10/08/16. BP: 115/71. HR: 97. --10:05 Taylor Leonard R.N. EKG time: (1003). EKG was performed by a tech and shown to the ED physician. --10:08 Lizzeth Apodaca ER Tech1 ( In position for LP. RN at bedside assisting). --10:55 Taylor Leonard R.N. 10:55 10/08/16. BP: 113/64. HR: 109. --10:55 Taylor Leonard R.N. late entry - 07:25 EKG accomplished and shown to ED physician. --11:25 Taylor Leonard R.N. 12:16 10/08/2016 Zofran (Ondansetron HCl) IVP 4 mg given over 2 minute(s) via site #1. Allergies verified and confirmed 5 rights. IV patency established. IV site checked: no pain, redness, or swelling. IV flushed thoroughly pre- and post-medication administration. IVP given by RN. --12:26 Taylor Leonard R.N. 12:26 10/08/16. BP: 109/49. HR: 78. RR: 16. O2 saturation: 100% at 2 liters/minute. Temp: 99.1 F. --12:29 Taylor Leonard R.N. ( RN at bedside 1:1 nursing with PROTOTYPE MACHINIST from 1135 until 1230 for attempt at LP. Pt. became diaphoretic, lightheaded and nauseated during the procedure while sitting up. Pt. was placed on his right side, placed O2 at 2L per PROTOTYPE MACHINIST request. Order for Zofran was given 4 mg IV. Pt. tolerated procedure well, but ultimately declined further attempts at LP.). --12:29 Taylor Leonard R.N. 13:00 10/08/16. BP: 101/56. HR: 71. O2 saturation: 100%. --13:01 Taylor Leonard R.N. ( Patient resting quietly. Girlfriend at bedside. Awaiting dispo). --13:01 Taylor Leonard R.N. ( MD at bedside explaining plans for IR to do LP). --13:22 Prabhu Eduardo R.N. 13:18 10/08/16. BP: 100/62. HR: 80. O2 saturation: 100%. --13:22 Prabhu Eduardo R.N. 13:33 10/08/2016 Ativan (LORazepam) IVP 0.5 mg given. via site #1. Allergies verified, confirmed 5 rights and sedative warning given to the patient and patient's weed control inspector. IV patency established. IV site checked: no pain, redness, or swelling. IV flushed thoroughly pre- and post-medication administration. IVP given by RN. --13:40 Prabhu Eduardo R.N. ( Pt out to IR). --13:54 Taylor Leonard R.N. 1430 late entry - Patient back from IR. Tolerated procedure well. Supine. Reconnected to monitor. No needs at this time. 14:50. --14:50 Taylor Leonard R.N. 14:50 10/08/16. BP: 105/64. HR: 74. Temp: 95 F. --14:50 Taylor Leonard R.N. ( Pt. OK'd to eat by .). --15:21 Taylor Leonard R.N. 10:57 10/08/2016 IV Fluids IV NS Discontinued: bag #2 infused. Total amount infused: 1000 mL. --15:57 Taylor Leonard R.N. DISPOSITION / DISCHARGE 15:54 10/08/2016 Site #1 removed upon discharge. Bandage applied. --15:54 Taylor Leonard R.N. Departure time: 1555. Condition at departure: improved and stable. No learning barriers present. Discharge instructions provided and reviewed with the patient and family. Reviewed warnings. Reviewed medication(s) side effects information. Patient verbalized understanding. Written instructions provided in [place]. The patient was discharged by the physician. He was discharged home and accompanied by spouse. He left the Emergency Department ambulatory and via private vehicle. Spouse driving. --15:55 Taylor Leonard R.N. 15:54 10/08/16. BP: 97/51. HR: 78. RR: 16. O2 saturation: 100%. Temp: 98 F. Pain level now: 0/10. --15:55 Taylor Leonard R.N. Locked/Released at 10/08/2016 15:57 by Taylor Leonard R.N.
--- NOTE | 2016-10-08 15:37 | ED CLINICAL REPORT ---
Clinical Report - Physicians/Mid Levels [facility] [address] [place] [address] 10/08/2016 7:00 Patient: DIANE CH Time Seen: 07:09; initial patient contact. Arrived- By ambulance. Historian- patient and EMS personnel. HISTORY OF PRESENT ILLNESS Chief Complaint: HEADACHE. This started today. It was abrupt in onset. Onset during light activity. It is described as similar to previous headaches. Located in the region of the right eye and left eye and frontal region. No neck pain. At its maximum, severity described as 8 / 10. When seen in the E.D., severity described as 3 / 10. No preceding symptoms, blurred vision, photophobia, associated nausea or numbness. No weakness or vomiting. (initially he felt that he had a caffeine withdrawal headache so he drank 2 energy drinks. Then he started feeling worse. He became flushed and had a "pinching" pain in his L armpit). No recent travel. REVIEW OF SYSTEMS The patient has had chills and experienced sweats. All systems otherwise negative, except as recorded above. PAST HISTORY Problems: no known problems. Additional Surgeries: no known surgeries. Medications: None. Allergies: None. SOCIAL HISTORY Smoker- current status unknown (he uses an e cigarette). History of occasional drug use: marijuana. No alcohol use. FAMILY HISTORY Cancer in first-degree relative (mother) and grandparent. ADDITIONAL NOTES The nursing notes have been reviewed. PHYSICAL EXAM Vital Signs: 10/08/2016 07:12 BP: 141/74. HR: 156. RR: 22. O2 saturation: 100%. Temp: 99.1 F. Pain level now: 7/10. Have been reviewed. Appearance: Alert. He is moderately obese. Eyes: Pupils equal, round and reactive to light. Eyes normal inspection. ENT: Pharynx normal. Neck: Normal inspection. Neck supple. No carotid bruit. CVS: Tachycardia. Respiratory: No respiratory distress. Breath sounds normal. Abdomen: Soft and nontender. No organomegaly. Obese. Back: Normal inspection. Skin: Diaphoresis. Extremities: Extremities exhibit normal ROM. No calf tenderness. No lower extremity edema. Neuro: Alert. Mood/affect normal. Speech normal. Cranial nerves normal (as tested). No cerebellar findings. No motor deficit. No sensory deficit. LABS, X-RAYS, AND EKG EKG: Rate: 149. Tachycardia. Prior EKG unavailable. The study has been independently viewed by me. EKG #2: Rate: 101. The study has been independently viewed by me. Chest X-ray: (IMPRESSION: 1. Upper limits of normal heart size. 2. No acute process.). The X-rays were interpreted by the radiologist and contemporaneously by me. Laboratory Tests: UA-Culture if indicated: (TREVON: 10/08/2016 07:04) ( [facility] Final results Test Result Flag Units (Reference) URINE COLOR YELLOW URINE APPEARANCE CLEAR URINE GLUCOSE NEGATIVE (NEGATIVE) URINE BILIRUBIN NEGATIVE (NEGATIVE) URINE KETONE NEGATIVE (NEGATIVE) URINE SPECIFIC GRAVITY 1.025 (1.010-1.030) URINE PH 5.5 (5.0-8.0) URINE PROTEIN NEGATIVE (NEGATIVE) URINE UROBILINOGEN 0.2 EU/dL (0.2-1.0) URINE NITRITE NEGATIVE (NEGATIVE) URINE BLOOD 1+ (NEGATIVE) URINE LEUK ESTERASE NEGATIVE (NEGATIVE) URINE RBC 3-5 rbc/hpf (0-1) URINE WBC RARE wbc/hpf (0-1) URINE EPITHELIAL CELLS RARE EPI/hpf (0-5) URINE BACTERIA NONE SEEN (NONE SEEN) URINE COMMENT CULT NOT INDICATED URINE CULTURES ARE SET-UP BASED ON THE FOLLOWING CRITERIA:POSITIVE NITRITEPOSITIVE LEUKOCYTE ESTERASEGREATER THAN 10 WHITE BLOOD CELLSMODERATE (2+) OR GREATER BACTERIA CBC w Diff: (TREVON: 10/08/2016 08:40) ( [facility] 08:56) Final results Test Result Flag Units (Reference) WHITE BLOOD COUNT 16.4 H K/uL (4.5-11.5) RED BLOOD COUNT 4.61 M/uL (4.50-5.90) HEMOGLOBIN 12.9 L gm/dL (13.5-17.5) HEMATOCRIT 38.5 L % (41.0-53.0) MEAN CELL VOLUME 84 fL (80-100) MEAN CORPUSCULAR HGB 28 pg (26-34) MEAN CORPUSCULAR HGB CONC 34 g/dL (31-37) RED CELL DISTRIBUTION WIDTH 12.6 % (11.6-14.8) PLATELET COUNT 295 K/uL (150-400) NEUTROPHIL % 93.1 H % (50-75) LYMPH % 3.5 L % (25-40) MONO % 3.2 % (3-14) EOSINOPHIL % 0.2 % (0-4) BASOPHIL % 0 % (0-2) BNP: (TREVON: 10/08/2016 07:20) ( [facility] 10/08/2016 09:51) Final results Test Result Flag Units (Reference) B-TYPE NATRIURETIC PEPTIDE 7.3 pg/ml (5-100) Lactate, Serum: (TREVON: 10/08/2016 09:39) ( [facility] 10/08/2016 10:19) Final results Test Result Flag Units (Reference) LACTIC ACID 1.2 mmol/L (0.4-2.0) CPK: (TREVON: 10/08/2016 08:40) ( [facility] 10/08/2016 09:52) Final results Test Result Flag Units (Reference) CPK 203 U/L (24-260) TROPONIN I <0.05 ng/mL (0.00-1.5) TROPONIN REFERENCE RANGE:<0.1 NEGATIVE0.1-1.5 INDETERMINANT>1.5 POSITIVE CMP: (TREVON: 10/08/2016 08:40) ( [facility] 10/08/2016 09:04) Final results Test Result Flag Units (Reference) GLUCOSE 126 H mg/dL (70-110) BUN 18 mg/dL (7-18) CREATININE 1.0 mg/dL (0.6-1.3) Estimated GFR >60 mL/min Estimated GFR- >60 mL/min Note: Persistent reduction over 3 months in eGFR<60 mL/min/1.73 m2 defines CKD. Patients with eGFR values>=60 mL/min/1.73 m2 may also have CKD if evidence ofpersistent proteinuria. Additional information may be foundat www.kidney.org. SODIUM 139 mmol/L (136-145) POTASSIUM 3.9 mmol/L (3.5-5.1) CHLORIDE 107 mmol/L (98-107) CARBON DIOXIDE 22 mmol/L (21-32) CALCIUM 8.3 L mg/dL (8.5-10.1) TOTAL PROTEIN 7.3 g/dL (6.4-8.2) ALBUMIN 3.5 g/dL (3.3-5.0) BILIRUBIN, TOTAL 0.4 mg/dL (0.0-1.0) ALKALINE PHOSPHATASE 99 U/L (46-116) AST (SGOT) 47 H U/L (15-37) ALT (SGPT) 102 H U/L (12-78) Urine Drug Screen: (TREVON: 10/08/2016 07:04) ( [facility] 10/08/2016 07:44) Final results Test Result Flag Units (Reference) AMPHETAMINE/METHAMPHETAMINE NEGATIVE (NEGATIVE) BARBITURATE NEGATIVE (NEGATIVE) BENZODIAZEPINE NEGATIVE (NEGATIVE) CANNABINOID NEGATIVE (NEGATIVE) COCAINE NEGATIVE (NEGATIVE) ECSTASY NEGATIVE (NEGATIVE) METHADONE NEGATIVE (NEGATIVE) OPIATE NEGATIVE (NEGATIVE) The urine drug screen is a qualitative screening test fordrug overdose and abuse. All screen results should beconsidered as presumptive.Drugs screened for are as follows:BenzodiazepinesCocaineAmphetamines/MetamphetaminesTHC (Tetrahydrocannabinol)OpiatesBarbituratesEcstasyMethadonePositive results are unconfirmed. For confirmation, notifythe lab for the specimen to be sent to the reference lab.All confirmations must be performed by a differentmethodology.The ingestion of natural herbal and plant productscontaining Ephedra/Ephedra metabolites can produce in urineone or more substances capable of cross reacting withamphetamine/methamphetamine immunoassays. These testsprovide a preliminary result only. A more specificalternative chemical method must be used to obtain aconfirmed analytical result. CSF, Cell Count: (TREVON: 10/08/2016 12:20) ( MsgRcv[facility] 10/08/2016 15:25) Final results Test Result Flag Units (Reference) CSF TOTAL VOLUME 12.0 CC TUBE # 3 COLOR COLORLESS APPEARANCE CLEAR CSF WBC 1 WBC/mm3 (0-5) CSF RBC 3 RBC/mm3 (0-5) CSF GLUCOSE 63 mg/dL (40-75) CSF PROTEIN 34.3 mg/dL (15-45) CSF, Culture: (TREVON: 10/08/2016 14:15) ( MsgRcvd 10/08/2016 15:26) IP Test Result Flag Units (Reference) GRAM STAIN, CSF DATE: 10/08/16 EPITHELIAL CELLS: NONE NO CELLS/NO BACTERIA: NO CELLS OR BACTERIA SEEN NO ORGANISMS SEEN: NO ORGANISMS SEEN WHITE BLOOD CELLS: NONE -- SPINAL FLUID . PROGRESS AND PROCEDURES Lumbar Puncture: Time-out completed immediately before the procedure. Lumbar puncture performed by me. Risks, benefits and alternatives were discussed. Consent was obtained from patient. Sterile technique was used. Local lidocaine anesthesia was used. A 22g needle was used. (3 unsuccessful attempts were made by me with a 5 inch needle. I subsequently consulted the nurse center medical director and she also made multiple attempts that were not successful. Therefore, interventional radiology was consulted and they obtained a sample under fluoroscopy.). Course of Care: the patient's care had been initiated by Dr. Enriquez. He reports that the patient arrived tachycardic. He treated the patient with adenosine, 2 doses without improvement. He subsequently treated him with a beta arleen and his heart rate improved however he still remains mildly tachycardic. - MW. Symptoms better. Vital signs have been reviewed. Physical exam findings are improved. Alert. No acute distress. Breath sounds normal. No respiratory distress. Normal heart rate and rhythm. Heart sounds normal. Abdomen soft and nontender. Skin warm and dry. Patient/family counseled. Old medical records ordered. Disposition: Discharged. Condition: stable. CLINICAL IMPRESSION Acute headache. Sinus tachycardia (Likely related to energy drink use). Leukocytosis. INSTRUCTIONS No driving or operating machinery while taking medication. Sedative medication was given during your visit. Do not work today, tomorrow. Warnings: Further evaluation is necessary. GENERAL WARNINGS: Return or contact your physician immediately if your condition worsens or changes unexpectedly, if not improving as expected, or if other problems arise. Understanding of the discharge instructions verbalized by patient and family. Follow-up with: [facility], , , [address], , [place], [address] Follow up tomorrow. Call for an appointment. (Electronically signed by Axel Still MD 10/09/2016 22:44)
--- NOTE | 2016-10-09 22:44 | ED DISCHARGE INSTRUCTIONS ---
Patient: DIANE CH General Instructions [facility] VisitID: [id number] [address] [place] [address] 36y, M Registration Date/Time: 10/08/2016 Acute headache. Sinus tachycardia (Likely related to energy drink use). Leukocytosis. INSTRUCTIONS No driving or operating machinery while taking medication. Sedative medication was given during your visit. Do not work today, tomorrow. Warnings: Further evaluation is necessary. GENERAL WARNINGS: Return or contact your physician immediately if your condition worsens or changes unexpectedly, if not improving as expected, or if other problems arise. Understanding of the discharge instructions verbalized by patient and family. Follow-up with: [facility], , , [address], [place], [address] Follow up tomorrow. Call for an appointment. ADDITIONAL INFORMATION Headache [Unspecified] The cause of your headache today is not clear, but it does not appear to be the sign of any serious illness. Under stress, some people tense the muscles of their shoulder, neck and scalp without knowing it. If this condition lasts long enough, a TENSION HEADACHE can occur. A MIGRAINE HEADACHE is caused by changes in blood flow to the brain. A migraine attack may be triggered by emotional stress, hormone changes during the menstrual cycle, oral contraceptives, alcohol use, certain foods containing tyramine, eye strain, weather changes, missing meals, lack of sleep or oversleeping. Other causes of headache include a viral illness with high fever, head injury with concussion, sinus, ear or throat infection, dental pain and TMJ (jaw joint) pain. More serious but less common causes of headache include stroke, brain hemorrhage, brain tumor, meningitis and encephalitis. Home Care: If you were given pain medicine for this headache, do not drive yourself home. Arrange for a ride, instead. When you get home, try to sleep. You should feel much better when you wake up. Apply heat to the back of your neck to relieve neck muscle spasm. Migraine headaches may respond best to an ice pack on the forehead or at the base of the skull. If you are having nausea or vomiting, follow a light diet until your headache is relieved. If you have a migraine type headache, use sunglasses when in the daylight or around bright indoor lighting until symptoms improve. Bright glaring light can worsen this kind of headache. Follow Up with your doctor if the headache is not better within the next 24 hours. If you have frequent headaches you should discuss a treatment plan with your primary care doctor. By being aware of the earliest signs of headache, and starting treatment right away, you may be able to stop the pain yourself. Get Prompt Medical Attention if any of the following occur: Worsening of your head pain or no improvement within 24 hours Repeated vomiting (unable to keep liquids down) Fever of 100.4F (38C) or higher, or as directed by your healthcare provider Stiff neck Extreme drowsiness, confusion or fainting Dizziness, vertigo (dizziness with spinning sensation) Weakness of an arm or leg or one side of the face Difficulty with speech or vision Tachycardia:P.A.T. (P.S.V.T.) P.A.T. stands for Paroxysmal Atrial Tachycardia (also called "P.S.V.T." or "Paroxysmal Supraventricular Tachycardia"). This means "sudden onset of fast heart beating." This may feel like your heart is racing or pounding. Because of the suddenness of onset, it is often scary but is usually not a dangerous condition. Episodes may last seconds, minutes or hours. This can occur in otherwise healthy persons who have used excessive amounts of stimulants such as tobacco or caffeine (coffee, tea, cola or medicines containing caffeine). Also certain brny-nhh-jmibqvi cold & sinus remedies, as well as diet pills and some herbal supplements can over-stimulate the heart. Obviously, cocaine and amphetamine are the most powerful heart stimulants and must be avoided. Overactive thyroid and some types of heart valve disorders can also cause P.A.T. If your doctor suspects this, tests may be done to find out if this is the cause in your case. Home Care: 1) Rest today and resume your normal activities as soon as you are feeling back to normal. Sometimes a prolonged episode of P.A.T. can leave you feeling tired and weak for a while. 2) To prevent a recurrence, avoid ALL the stimulants mentioned above. If you have trouble eliminating coffee, switch to decaf. Smokers should make every effort to stop or at least switch to a filtered, low-nicotine type of cigarette while you look for a stop-smoking program. 3) If another episode of P.A.T. occurs, lie down and try to remain calm. These spells usually stop by themselves within a few minutes. Follow Up with your doctor within the week or as instructed by our staff. Get Prompt Medical Attention if any of the following occur: -- Chest, shoulder, arm, neck or back pain -- Shortness of breath -- Weakness -- Fainting or light-headedness -- Fast or pounding heartbeat that lasts over 20 minutes You have been given the following additional information: Headache, Unspecified Pat (P.A.T.) No driving or operating machinery while taking medication. Sedative medication was given during your visit. Do not work today, tomorrow. (Electronically signed by Axel Still MD 10/09/2016 22:44)
--- NOTE | 2016-10-09 22:44 | ED MED RECONCILIATION SUMMARY ---
Patient: DIANE CH Medication Reconciliation Report [facility] VisitID: [id number] [address] [place] [address] 36y, M Registration Date/Time: 10/08/2016 Weight: 115.6 kg Height/Length: 74 in. BMI: 32.7 ALLERGIES: None The patient's Home Medications are listed below: NONE. The source(s) of the original Home Medication information: patient The following Medications were given to the patient in the Emergency Department: Adenosine [IVP] IVP 6 mg, administered: 10/08/2016 7:33:00 AM Adenosine [IVP] IVP 12 mg, administered: 10/08/2016 7:37:00 AM Lopressor [IVP] IVP 5 mg, administered: 10/08/2016 7:43:00 AM IV NS IV Fluids bolus 1000 mL wide open, then 750 mL/hr, administered: 10/08/2016 7:30:00 AM Lopressor [IVP] IVP 5 mg, administered: 10/08/2016 8:10:00 AM Reglan [IVP] IVP 10 mg, administered: 10/08/2016 8:15:00 AM IV NS IV Fluids bolus 1000 mL wide open, administered: 10/08/2016 8:24:00 AM IV NS IV Fluids bolus 0, then 125 mL/hr, administered: 10/08/2016 9:51:00 AM Ibuprofen [PO] PO 800 mg, administered: 10/08/2016 9:51:00 AM Zofran [IVP] IVP 4 mg, administered: 10/08/2016 12:16:00 PM Ativan [IVP] IVP 0.5 mg, administered: 10/08/2016 1:33:00 PM The following Medications were prescribed to the patient: None.
--- NOTE | 2016-10-09 22:44 | ED MED RECONCILIATION SUMMARY ---
Patient: DIANE CH Medication Reconciliation Report [facility] VisitID: [id number] [address] [place] [address] 36y, M Registration Date/Time: 10/08/2016 Weight: 115.6 kg Height/Length: 74 in. BMI: 32.7 ALLERGIES: None The patient's Home Medications are listed below: NONE. The source(s) of the original Home Medication information: patient The following Medications were given to the patient in the Emergency Department: Adenosine [IVP] IVP 6 mg, administered: 10/08/2016 7:33:00 AM Adenosine [IVP] IVP 12 mg, administered: 10/08/2016 7:37:00 AM Lopressor [IVP] IVP 5 mg, administered: 10/08/2016 7:43:00 AM IV NS IV Fluids bolus 1000 mL wide open, then 750 mL/hr, administered: 10/08/2016 7:30:00 AM Lopressor [IVP] IVP 5 mg, administered: 10/08/2016 8:10:00 AM Reglan [IVP] IVP 10 mg, administered: 10/08/2016 8:15:00 AM IV NS IV Fluids bolus 1000 mL wide open, administered: 10/08/2016 8:24:00 AM IV NS IV Fluids bolus 0, then 125 mL/hr, administered: 10/08/2016 9:51:00 AM Ibuprofen [PO] PO 800 mg, administered: 10/08/2016 9:51:00 AM Zofran [IVP] IVP 4 mg, administered: 10/08/2016 12:16:00 PM Ativan [IVP] IVP 0.5 mg, administered: 10/08/2016 1:33:00 PM The following Medications were prescribed to the patient: None.
--- NOTE | 2016-10-09 22:44 | ED DISCHARGE INSTRUCTIONS ---
Patient: DIANE CH General Instructions [facility] VisitID: [id number] [address] [place] [address] 36y, M Registration Date/Time: 10/08/2016 Acute headache. Sinus tachycardia (Likely related to energy drink use). Leukocytosis. INSTRUCTIONS No driving or operating machinery while taking medication. Sedative medication was given during your visit. Do not work today, tomorrow. Warnings: Further evaluation is necessary. GENERAL WARNINGS: Return or contact your physician immediately if your condition worsens or changes unexpectedly, if not improving as expected, or if other problems arise. Understanding of the discharge instructions verbalized by patient and family. Follow-up with: [facility], , , [address], [place], [id number] Follow up tomorrow. Call for an appointment. ADDITIONAL INFORMATION Headache [Unspecified] The cause of your headache today is not clear, but it does not appear to be the sign of any serious illness. Under stress, some people tense the muscles of their shoulder, neck and scalp without knowing it. If this condition lasts long enough, a TENSION HEADACHE can occur. A MIGRAINE HEADACHE is caused by changes in blood flow to the brain. A migraine attack may be triggered by emotional stress, hormone changes during the menstrual cycle, oral contraceptives, alcohol use, certain foods containing tyramine, eye strain, weather changes, missing meals, lack of sleep or oversleeping. Other causes of headache include a viral illness with high fever, head injury with concussion, sinus, ear or throat infection, dental pain and TMJ (jaw joint) pain. More serious but less common causes of headache include stroke, brain hemorrhage, brain tumor, meningitis and encephalitis. Home Care: If you were given pain medicine for this headache, do not drive yourself home. Arrange for a ride, instead. When you get home, try to sleep. You should feel much better when you wake up. Apply heat to the back of your neck to relieve neck muscle spasm. Migraine headaches may respond best to an ice pack on the forehead or at the base of the skull. If you are having nausea or vomiting, follow a light diet until your headache is relieved. If you have a migraine type headache, use sunglasses when in the daylight or around bright indoor lighting until symptoms improve. Bright glaring light can worsen this kind of headache. Follow Up with your doctor if the headache is not better within the next 24 hours. If you have frequent headaches you should discuss a treatment plan with your primary care doctor. By being aware of the earliest signs of headache, and starting treatment right away, you may be able to stop the pain yourself. Get Prompt Medical Attention if any of the following occur: Worsening of your head pain or no improvement within 24 hours Repeated vomiting (unable to keep liquids down) Fever of 100.4F (38C) or higher, or as directed by your healthcare provider Stiff neck Extreme drowsiness, confusion or fainting Dizziness, vertigo (dizziness with spinning sensation) Weakness of an arm or leg or one side of the face Difficulty with speech or vision Tachycardia:P.A.T. (P.S.V.T.) P.A.T. stands for Paroxysmal Atrial Tachycardia (also called "P.S.V.T." or "Paroxysmal Supraventricular Tachycardia"). This means "sudden onset of fast heart beating." This may feel like your heart is racing or pounding. Because of the suddenness of onset, it is often scary but is usually not a dangerous condition. Episodes may last seconds, minutes or hours. This can occur in otherwise healthy persons who have used excessive amounts of stimulants such as tobacco or caffeine (coffee, tea, cola or medicines containing caffeine). Also certain [id number]-[id number] cold & sinus remedies, as well as diet pills and some herbal supplements can over-stimulate the heart. Obviously, cocaine and amphetamine are the most powerful heart stimulants and must be avoided. Overactive thyroid and some types of heart valve disorders can also cause P.A.T. If your doctor suspects this, tests may be done to find out if this is the cause in your case. Home Care: 1) Rest today and resume your normal activities as soon as you are feeling back to normal. Sometimes a prolonged episode of P.A.T. can leave you feeling tired and weak for a while. 2) To prevent a recurrence, avoid ALL the stimulants mentioned above. If you have trouble eliminating coffee, switch to decaf. Smokers should make every effort to stop or at least switch to a filtered, low-nicotine type of cigarette while you look for a stop-smoking program. 3) If another episode of P.A.T. occurs, lie down and try to remain calm. These spells usually stop by themselves within a few minutes. Follow Up with your doctor within the week or as instructed by our staff. Get Prompt Medical Attention if any of the following occur: -- Chest, shoulder, arm, neck or back pain -- Shortness of breath -- Weakness -- Fainting or light-headedness -- Fast or pounding heartbeat that lasts over 20 minutes You have been given the following additional information: Headache, Unspecified Pat (P.A.T.) No driving or operating machinery while taking medication. Sedative medication was given during your visit. Do not work today, tomorrow. (Electronically signed by Axel Still MD 10/09/2016 22:44)
--- NOTE | 2016-10-09 22:44 | ED MAR SUMMARY ---
..... Medication Administration Record [facility] [address] [place] [address] Patient: DIANE CH Visit ID: [id number] 36y, M Weight: 115.6 kg Height/Length: 74 in BMI: 32.7 ALLERGIES: None Start 07:30 10/08/2016 Taylor Leonard R.N. Medication Administered: IV NS (SALINE), Dose: IV Fluids over 1 hour(s), Rate: 750 mL/hr, Bolus: 1000 mL wide open, Dispensed: 1000 mL bag, Site: #1 right AC. Medication Ordered: IV NS with Normal Saline 1 Liter: initial bolus 1000 mL (1000 mL/hr), then 1000 mL/hr for X1 (NOW). Given 07:33 10/08/2016 Taylor Leonard R.N. Medication Administered: ADENOSINE [IVP], Dose: 6 mg IVP over 1 second(s), Site: #1 right AC. Medication Ordered: Adenosine IV 6 mg (HIGH ALERT MEDICATION, NOW). Given 07:37 10/08/2016 Taylor Leonard R.N. Medication Administered: ADENOSINE [IVP], Dose: 12 mg IVP over 1 second(s), Site: #1 right AC. Medication Ordered: Adenosine IV 12 mg (HIGH ALERT MEDICATION, NOW). Given 07:43 10/08/2016 Taylor Leonard R.N. Medication Administered: LOPRESSOR [IVP] (METOPROLOL TARTRATE), Dose: 5 mg IVP over 2 minute(s), Site: #1 right AC. Medication Ordered: Lopressor IV 5 mg (NOW). Given 08:10 10/08/2016 Taylor Leonard R.N. Medication Administered: LOPRESSOR [IVP] (METOPROLOL TARTRATE), Dose: 5 mg IVP over 2 minute(s), Site: #1 right AC. Medication Ordered: Lopressor IV 5 mg (HIGH ALERT MEDICATION, NOW). Given 08:15 10/08/2016 Taylor Leonard R.N. Medication Administered: REGLAN [IVP] (METOCLOPRAMIDE HCL), Dose: 10 mg IVP over 30 minute(s), Site: #1 right AC. Medication Ordered: Reglan IV 10 mg (NOW). Start 08:24 10/08/2016 Taylor Leonard R.N., Stop 09:51 10/08/2016 Taylor Leonard R.N. Medication Administered: IV NS (SALINE), Dose: IV Fluids, Bolus: 1000 mL wide open, Site: #1 right AC. Medication Ordered: IV NS : initial bolus none -, then 1000 mL/hr for X1 (NOW). Given 09:51 10/08/2016 Taylor Leonard R.N. Medication Administered: IBUPROFEN [PO], Dose: 800 mg Tablets PO. Medication Ordered: Ibuprofen PO 800 mg (NOW). Start 09:51 10/08/2016 Taylor Leonard R.N., Stop 10:57 10/08/2016 Taylor Leonard R.N. Medication Administered: IV NS (SALINE), Dose: IV Fluids over 7 hour(s), Rate: 125 mL/hr, Dispensed: 1000 mL bag, Site: #1 right AC. Medication Ordered: IV NS with Normal Saline 1 Liter: initial bolus none -, then 125 mL/hr for X1 (NOW). Given 12:16 10/08/2016 Taylor Leonard R.N. Medication Administered: ZOFRAN [IVP] (ONDANSETRON HCL), Dose: 4 mg IVP over 2 minute(s), Site: #1 right AC. Medication Ordered: Zofran IV 4 mg (NOW). Given 13:33 10/08/2016 Prabhu Eduardo RJuan DavidNJuan David Medication Administered: ATIVAN [IVP] (LORAZEPAM), Dose: 0.5 mg IVP, Site: #1 right AC. Medication Ordered: Ativan IV 0.5 mg (HIGH ALERT MEDICATION, NOW).
--- NOTE | 2016-10-09 22:44 | ED MAR SUMMARY ---
..... Medication Administration Record [facility] [address] [place] [address] Patient: DIANE CH Visit ID: [id number] 36y, M Weight: 115.6 kg Height/Length: 74 in BMI: 32.7 ALLERGIES: None Start 07:30 10/08/2016 Taylor Leonard R.N. Medication Administered: IV NS (SALINE), Dose: IV Fluids over 1 hour(s), Rate: 750 mL/hr, Bolus: 1000 mL wide open, Dispensed: 1000 mL bag, Site: #1 right AC. Medication Ordered: IV NS with Normal Saline 1 Liter: initial bolus 1000 mL (1000 mL/hr), then 1000 mL/hr for X1 (NOW). Given 07:33 10/08/2016 Taylor Leonard R.N. Medication Administered: ADENOSINE [IVP], Dose: 6 mg IVP over 1 second(s), Site: #1 right AC. Medication Ordered: Adenosine IV 6 mg (HIGH ALERT MEDICATION, NOW). Given 07:37 10/08/2016 Taylor Leonard R.N. Medication Administered: ADENOSINE [IVP], Dose: 12 mg IVP over 1 second(s), Site: #1 right AC. Medication Ordered: Adenosine IV 12 mg (HIGH ALERT MEDICATION, NOW). Given 07:43 10/08/2016 Taylor Leonard R.N. Medication Administered: LOPRESSOR [IVP] (METOPROLOL TARTRATE), Dose: 5 mg IVP over 2 minute(s), Site: #1 right AC. Medication Ordered: Lopressor IV 5 mg (NOW). Given 08:10 10/08/2016 Taylor Leonard R.N. Medication Administered: LOPRESSOR [IVP] (METOPROLOL TARTRATE), Dose: 5 mg IVP over 2 minute(s), Site: #1 right AC. Medication Ordered: Lopressor IV 5 mg (HIGH ALERT MEDICATION, NOW). Given 08:15 10/08/2016 Taylor Leonard R.N. Medication Administered: REGLAN [IVP] (METOCLOPRAMIDE HCL), Dose: 10 mg IVP over 30 minute(s), Site: #1 right AC. Medication Ordered: Reglan IV 10 mg (NOW). Start 08:24 10/08/2016 Taylor Leonard R.N., Stop 09:51 10/08/2016 Taylor Leonard R.N. Medication Administered: IV NS (SALINE), Dose: IV Fluids, Bolus: 1000 mL wide open, Site: #1 right AC. Medication Ordered: IV NS : initial bolus none -, then 1000 mL/hr for X1 (NOW). Given 09:51 10/08/2016 Taylor Leonard R.N. Medication Administered: IBUPROFEN [PO], Dose: 800 mg Tablets PO. Medication Ordered: Ibuprofen PO 800 mg (NOW). Start 09:51 10/08/2016 Taylor Leonard R.N., Stop 10:57 10/08/2016 Taylor Leonard R.N. Medication Administered: IV NS (SALINE), Dose: IV Fluids over 7 hour(s), Rate: 125 mL/hr, Dispensed: 1000 mL bag, Site: #1 right AC. Medication Ordered: IV NS with Normal Saline 1 Liter: initial bolus none -, then 125 mL/hr for X1 (NOW). Given 12:16 10/08/2016 Taylor Leonard R.N. Medication Administered: ZOFRAN [IVP] (ONDANSETRON HCL), Dose: 4 mg IVP over 2 minute(s), Site: #1 right AC. Medication Ordered: Zofran IV 4 mg (NOW). Given 13:33 10/08/2016 Prabhu Eduardo RJuan DavidNJuan David Medication Administered: ATIVAN [IVP] (LORAZEPAM), Dose: 0.5 mg IVP, Site: #1 right AC. Medication Ordered: Ativan IV 0.5 mg (HIGH ALERT MEDICATION, NOW).
== END 2016-10-08 15:52 | disposition home or self-care (01) ==
LOC: ED SRH 06:55
DX: R51 Headache (principal); R00.0 Tachycardia, unspecified; D72.829 Elevated white blood cell count, unspecified; Z72.0 Tobacco use
CPT/HCPCS: 80222; 81344; 83483; 90004; 90065; 90074; 90100; 90134; 90309; 90616; 91320; 92031; 92070; 92610; 92653; 92760; 92761; 92762; 92763; 92764; 92765; 92766; 92767; 95030; 95059